=== PATIENT | female | born 1980 | race Caucasian/White ===

== ENCOUNTER 2022-01-24 07:28 | Emergency (ER) | payer OTHER ==
[~2022-01-24 07:28] MED LIST: BACTRIM DS TAB1 EACH PO; ONDANSETRON ODT4 MG SL; VOLTAREN **OUT50 MG PO
[2022-01-24 09:20] LABS: BASOPHIL 0.6 % (0-2); EOSINOPHIL 1.8 % (0-5); HCT 40.3 % (37.0-47.0); HGB 13.4 g/dl (12.5-16.0); LYMPHOCYTE 13.2 % (15-48); MCH 31.2 pg (25.0-31.0); MCHC 33.3 g/dL (32.0-36.0); MCV 93.7 fL (78.0-100.0); MONOCYTE 10.6 % (0-12); MPV 10.3 fL (6.0-9.5); NEUTROPHIL 73.3 % (41-80); NRBC 0; PLT 236 K/uL (150-400); RDW 11.5 % (11.5-14.0); WBC 12.6 K/uL (4.0-10.5)
[2022-01-24 09:43] LABS: ALBUMIN 3.2 g/dL (3.4-5.0); BILIRUBIN - TOTAL 0.6 mg/dL (0.2-1.0); BUN/CREAT RATIO (CALC) 16.9 RATIO; CREATININE 0.65 mg/dL (0.51-0.95); GLOBULIN (CALCULATION) 4.6 g/dL; TOTAL PROTEIN 7.8 g/dL (6.4-8.2)
[2022-01-24 09:44] LABS: HCG (URINE) SCREEN NEGATIVE (NEGATIVE)
[2022-01-24 09:52] LABS: LACTIC ACID 0.5 mmol/L (0.4-1.9)
[2022-01-24 10:04] LABS: BILIRUBIN NEGATIVE (NEGATIVE); BLOOD TRACE-INTACT Ery/uL (NEGATIVE); CLARITY HAZY (CLEAR); COLOR ORANGE (YELLOW); GLUCOSE (U) TRACE mg/dL (NORMAL); LEUKOCYTES TRACE Leu/uL (NEGATIVE); NITRITE POSITIVE (NEGATIVE); PROTEIN 1+ mg/dL (NEGATIVE); SPECIFIC GRAVITY 1.015 (1.001-1.030); UROBILINOGEN >=8.0 mg/dL (0.2-1.0); pH 6.5 (5.0-9.0)
[2022-01-24 10:17] LABS: BACTERIA 4+
[2022-01-24] MEDS ORDERED: BACTRIM DS TAB1 EACH PO (13:17)
== END 2022-01-24 13:17 | disposition home or self-care (01) ==
LOC: FER 07:28
PROVIDERS: Emergency Medicine
DX: N12 Tubulo-interstitial nephritis, not specified as acute or chronic (principal)
CPT/HCPCS: 36415; 80053; 81001; 83605; 84703; 85025; J0696; J2270; J7030; Q9967